=== PATIENT | female | born 1960 | race Caucasian/White ===

== ENCOUNTER 2020-01-05 13:32 | Emergency (ER) | payer BC ==
[2020-01-05] MEDS ORDERED: IBUPROFEN 600 MG TABLET PO ONE (13:54)
--- NOTE | 2020-01-05 14:07 | ER Document Report ---
ED Medical Screen (RME) - General Chief Complaint: Elbow Injury Stated Complaint: LEFT ELBOW INJURY Time Seen by Provider: 01/05/20 13:49 Mode of Arrival: Wheelchair Information source: Patient Notes: 59-year-old female presented to ED for injury to her left elbow. She states that she stumbled in the mall and fell tripped over her own feet. She states she made herself fall onto the left side because she had surgery on her right shoulder November 06. She states she has pain medicines at home but does not take them because she does not like narcotics. She states she lives in [facility] but is here visiting her son. Her is at her son's house and will probably be taking her back home to her orthopedic surgeon who did her right shoulder. Had ordered ibuprofen but Dr. Carvajal that she will probably need conscious sedation so he did not want me to give her any p.o. medications. He is alert oriented respirations regular nonlabored. She is in level 5/5. I have greeted and performed a rapid initial assessment of this patient. A comprehensive ED assessment and evaluation of the patient, analysis of test results and completion of medical decision making process will be conducted by an additional ED providers. Physical Exam - Vital signs Vitals: Temp Pulse Resp BP Pulse Ox 97.7 F 95 20 120/68 100 01/05/20 13:44 01/05/20 13:44 01/05/20 13:44 01/05/20 13:44 01/05/20 13:44 Course - Vital Signs Vital signs: Temp Pulse Resp BP Pulse Ox 97.7 F 95 20 120/68 100 01/05/20 13:44 01/05/20 13:44 01/05/20 13:44 01/05/20 13:44 01/05/20 13:44
--- NOTE | 2020-01-05 14:40 | RADIOLOGY REPORT (SQ) ---
EXAM DESCRIPTION: ELBOW LEFT OVER 2 VIEWS IMAGES COMPLETED DATE/TIME: 01/05/2020 1:08 pm REASON FOR STUDY: fall pain injury COMPARISON: None. NUMBER OF VIEWS: Four views. TECHNIQUE: AP, lateral, and both oblique radiographic images acquired of the left elbow. LIMITATIONS: None. FINDINGS: MINERALIZATION: Normal. BONES: There is complete posterior dislocation at the of the ulna and radius from the trochlea at the elbow joint. Large elbow joint effusion. No definitive fracture. Normal alignment at the ulna and radius. JOINT: Large joint effusion. SOFT TISSUES: No soft tissue swelling. No foreign body. OTHER: No other significant finding. IMPRESSION: Acute posterior dislocation at the elbow joint. No definitive fracture. TECHNICAL DOCUMENTATION: JOB ID: [id number] [address]- All Rights Reserved Reading location - IP/workstation name: [id number]
[2020-01-05] MEDS ORDERED: PROPOFOL INJ 200 MG/20 ML VIAL IV ONE (14:56)
--- NOTE | 2020-01-05 14:57 | ER Document Report ---
ED Extremity Problem, Upper - General Chief Complaint: Elbow Injury Stated Complaint: LEFT ELBOW INJURY Time Seen by Provider: 01/05/20 13:49 Mode of Arrival: Wheelchair Notes: HPI: 59-year-old female who was [place] in the mall when she states she lost her balance landing on her left elbow. She denies hitting her head. She denies any lightheadedness, dizziness, chest pain, palpitations causing the fall. She is n ot on blood thinning medications. ROS: See HPI All other review of systems reviewed and otherwise negative Reviewed vital signs and nursing note as charted by RN. PHYSICAL EXAM: CONSTITUTIONAL: Alert and oriented and responds appropriately to questions. Well-appearing; well-nourished HEAD: Normocephalic; atraumatic EYES: PERRL ENT: Midface stable without lesions NECK: Supple without meningismus; non-tender to palpation CARD: Regular rate and rhythm; no murmurs; symmetric distal pulses RESP: Normal chest excursion without splinting or tachypnea; breath sounds clear and equal bilaterally ABD/GI: Normal bowel sounds; non-distended; soft, non-tender BACK: The back appears normal and is non-tender to palpation of the midline spine EXT: Swelling with obvious deformity to the left elbow. No open lesions present. Good distal pulses. No tenderness to the left humerus, clavicle, forearm, wrist, or hand. SKIN: No acute lesions noted NEURO: CN 2-12 intact; full range of motion of all other 3 extremities PSYCH: The patient's mood and manner are appropriate. Grooming and personal hygiene are appropriate. - Related Data Allergies/Adverse Reactions: No Known Allergies Allergy (Unverified 01/05/20 14:36) Past Medical History - General Information source: Patient - Social History Smoking Status: Never Smoker Frequency of alcohol use: None Drug Abuse: None Family History: Reviewed & Not Pertinent - Past Medical History Cardiac Medical History: Reports: Hx Hypercholesterolemia, Hx Hypertension Endocrine Medical History: Reports: Hx Diabetes Mellitus Type 2 - diet controlled Past Surgical History: Reports: Hx Appendectomy, Hx Cholecystectomy, Hx Hysterectomy, Hx Orthopedic Surgery - rt shoulder Physical Exam - Vital signs Vitals: Temp Pulse Resp BP Pulse Ox 97.7 F 95 20 120/68 100 01/05/20 13:44 01/05/20 13:44 01/05/20 13:44 01/05/20 13:44 01/05/20 13:44 Course - Re-evaluation Re-evalutation: 01/05/20 14:56 Given the above history and physical we did order an x-ray of the left elbow. X-ray shows a dislocation without fracture. No change in neuro exam. I have explained the risks and benefits of sedation to the patient. She understands these risks. She will allow the sedation. We will attempt propofol and dislocation reduction. Conscious sedation and elbow relocation went excellent. Procedure notes as recorded. Repeat imaging shows good alignment. Neurovascular intact distally. - Vital Signs Vital signs: Temp Pulse Resp BP Pulse Ox 97.9 F 95 20 120/68 100 01/05/20 14:30 01/05/20 13:44 01/05/20 13:44 01/05/20 13:44 01/05/20 13:44 Procedures - Conscious Sedation Conscious sedation Time started: 15:24 Time completed: 15:30 Consent obtained: Yes Prior complications: Procedural sedation Pt with a mild systemic disease.: P2. - ASA Classification. Airway Evaluation: Normal anatomy Mallampati Classification: Class 2 Used during procedure: Suction available, IV access obtained, Pulse ox on pt., residential monitor on pt. Medications administered: Other - propofol Reversal agents: None I personally performed/intraservice time: Sedation, Procedure, 30 min or less Complications: No - Immobilization Left Elbow Pre-Proc Neuro Vasc Exam: Normal Immobilizer type: Long arm posterior Performed by: Provider Post-Proc Neuro Vasc Exam: Normal Alignment checked and good: Yes - Joint Reduction/Fracture Care Left Elbow Consent obtained: Yes Conscious sedation: Yes Pre-procedure NV exam: Yes Fracture: Closed Manipulation comment: Traction and countertraction Post-procedure NV exam: Yes Post-reduction x-ray: Joint reduced Reduction attempts: 1 Complications: No Discharge - Discharge Clinical Impression: Accidental fall Qualifiers: Encounter type: initial encounter Qualified Code(s): W19.XXXA - Unspecified fall, initial encounter Dislocation of left elbow Qualifiers: Encounter type: initial encounter Qualified Code(s): S53.105A - Unspecified dislocation of left ulnohumeral joint, initial encounter Condition: Good Disposition: HOME, SELF-CARE Additional Instructions: Come back immediately for any increased arm swelling, discoloration, increased pain, pain to new locations, or any other acute problems. Please follow-up with the orthopedic surgeon for further evaluation and treatment as discussed.
[2020-01-05] MEDS ORDERED: HYDROCODONE/ACETAMINOPHEN 5-325 MG TABLET PO ONE (15:45)
[2020-01-05 15:59] VITALS: BP 127/80
--- NOTE | 2020-01-05 16:10 | RADIOLOGY REPORT (SQ) ---
EXAM DESCRIPTION: ELBOW LEFT AP/LATERAL IMAGES COMPLETED DATE/TIME: 01/05/2020 2:59 pm REASON FOR STUDY: post reduction COMPARISON: Left oval radiograph same date at 1404 hours NUMBER OF VIEWS: Four views. TECHNIQUE: AP and lateral radiographic images acquired of the left elbow. LIMITATIONS: None. FINDINGS: MINERALIZATION: Normal. BONES: Interval reduction of the dislocation at the elbow joint. No definite fracture. Normal align ment. Large joint effusion. JOINT: Large joint effusion. SOFT TISSUES: No soft tissue swelling. No foreign body. OTHER: No other significant finding. IMPRESSION: Interval reduction with good alignment of the elbow joint. No definite acute fracture. Large joint effusion. TECHNICAL DOCUMENTATION: JOB ID: [id number] 2010 [employer]- All Rights Reserved Reading location - IP/workstation name: [email or web address]
== END 2020-01-05 16:15 | disposition home or self-care (01) ==
LOC: ER 13:32
DX: S53.115A Anterior dislocation of left ulnohumeral joint, initial encounter (principal); S53.125A Posterior dislocation of left ulnohumeral joint, initial encounter; W19.XXXA Unspecified fall, initial encounter; Y93.01 Activity, walking, marching and hiking; Y92.59 Other trade areas as the place of occurrence of the external cause; I10 Essential (primary) hypertension; E11.9 Type 2 diabetes mellitus without complications
CPT/HCPCS: 99283; 99152; 82962; 73070; 73080; 24600; J2704